=== PATIENT | male | born 1965 | race Caucasian/White ===

== ENCOUNTER 2016-08-24 11:22 | Emergency (ER) | payer OTHER ==
[~2016-08-24] VITALS: Ht 170.2 cm; Wt 128.0 kg
[~2016-08-24 11:22] MED LIST: ALLEGRA-D 241 TABLET PO; VICTOZA 2-0.6 MG/0.1 SC
[2016-08-24] MEDS ORDERED: FLEXERIL10 MG PO (12:29)
[2016-08-24] MEDS ORDERED: MOTRIN600 MG PO (12:29)
[2016-08-24 12:42] VITALS: BP 131/87
== END 2016-08-24 12:44 | disposition home or self-care (01) ==
LOC: EME → EDBD 11:22 → EME 12:44
DX: S13.9XXA Sprain of joints and ligaments of unspecified parts of neck, initial encounter (principal); R51 Headache; V49.40XA Driver injured in collision with unspecified motor vehicles in traffic accident, initial encounter; Z98.1 Arthrodesis status; E11.9 Type 2 diabetes mellitus without complications
CPT/HCPCS: 72040; 99281; 99283